=== PATIENT | male | born 1965 | race Caucasian/White ===

== ENCOUNTER 2018-08-29 18:11 | Emergency (ER) | payer MEDICAID, OTHER ==
[2018-08-29 18:11] VITALS: BMI 36.0
--- NOTE | 2018-08-29 18:26 | C.PDOC ---
History Of Present Illness 53 year old male presents to the ED BIBA for substance abuse. As per ALS, patient was found unresponsive in sister's house. Patient was given Narcan 2mg and then woke up. As per patient, he snorted 2 bags of heroin today. States it has been 5 months since the last use. Reports he has a lot of stress but denies any SI/HI. Denies vomiting or nausea. Time Seen by Provider: 08/29/18 18:20 Chief Complaint (Nursing): Substance Abuse History Per: Patient, EMS History/Exam Limitations: no limitations Onset/Duration Of Symptoms: Hrs Current Symptoms Are (Timing): Still Present Suicide/Self Injury Attempted (Context): None Modifying Factor(s): Narcotics (heroin ) Associated Symptoms: denies: Suicidal Thoughts, Suicidal Plan Past Medical History Reviewed: Historical Data, Nursing Documentation, Vital Signs - Medical History PMH: No Chronic Diseases Surgical History: Tonsillectomy - [facility] OTHER SKIN & SUBQ I D (03/09/14) Family History: States: No Known Family Hx - Social History Hx Alcohol Use: Yes Hx Substance Use: No Review Of Systems Except As Marked, All Systems Reviewed And Found Negative. Physical Exam - Physical Exam Appears: Non-toxic, No Acute Distress Skin: Warm, Dry, No Rash Head: Normacephalic Eye(s): bilateral: Normal Inspection Oral Mucosa: Moist Neck: Supple Chest: Symmetrical Cardiovascular: Rhythm Regular, No Murmur Respiratory: Normal Breath Sounds, No Rales, No Rhonchi, No Wheezing Gastrointestinal/Abdominal: Soft, No Tenderness Extremity: Bilateral: Atraumatic, Normal Color And Temperature, Normal ROM Neurological/Psych: Oriented x3, Normal Speech Gait: Steady Medical Decision Making Medical Decision Making: Assessment: heroin overdose Disposition Counseled Patient/Family Regarding: Studies Performed, Diagnosis, Need For Followup - Disposition Referrals: [facility] [Outside] Disposition: HOME/ ROUTINE Disposition Time: 08:44 Condition: STABLE Additional Instructions: follow up with your doctor in 2 days call to make an appointment stop using drugs return to ER if symptoms worsens or progress Instructions: Narcotic Overdose (DC) Forms: [facility] (Monegasque), General Discharge Instructions - Clinical Impression Clinical Impression: Drug abuse - Scribe Statement The provider has reviewed the documentation as recorded by the Scribe Nighat Gallegos All medical record entries made by the Scribe were at my direction and personally dictated by me. I have reviewed the chart and agree that the record accurately reflects my personal performance of the history, physical exam, medical decision making, and the department course for this patient. I have also personally directed, reviewed, and agree with the discharge instructions and disposition.
[2018-08-29] MEDS ORDERED: Naloxone 0.4 mg/ml Inj (Adult) ONE (19:01)
[2018-08-29] MEDS ORDERED: Naloxone 0.4 mg/ml Inj (Adult) IVP ONE (19:02)
[2018-08-29 21:22] VITALS: BP 126/92; PULSE 78; RESP 16; TEMP 98; O2SAT 99
== END 2018-08-29 21:20 | disposition home or self-care (01) ==
LOC: C.ER 18:11
DX: F19.10 Other psychoactive substance abuse, uncomplicated (principal)
CPT/HCPCS: 96374; 99285; J2310